=== PATIENT | female | born 1970 | race Caucasian/White ===

== ENCOUNTER → 2017-09-21 | Outpatient (CLI) | payer OTHER | LOC: FIMAGING 13:05 | PROVIDERS: ATTEND Obstetrics & Gynecology | DX: Z12.39 Encounter for other screening for malignant neoplasm of breast (principal); R92.8 Other abnormal and inconclusive findings on diagnostic imaging of breast | CPT/HCPCS: G0204 ==

== ENCOUNTER → 2017-09-26 | Outpatient (CLI) | payer OTHER | LOC: FIMAGING 13:02 | PROVIDERS: ATTEND Obstetrics & Gynecology | DX: N92.6 Irregular menstruation, unspecified (principal) ==

== ENCOUNTER → 2019-01-23 | Outpatient (CLI) | payer OTHER | LOC: FIMAGING 15:47 | PROVIDERS: ATTEND Obstetrics & Gynecology | DX: Z12.31 Encounter for screening mammogram for malignant neoplasm of breast (principal) ==